=== PATIENT | male | born 1950 | race Hispanic/Latino ===

== ENCOUNTER 2022-04-05 17:27 | Emergency (ER) | payer MEDICARE ==
[2022-04-05] MEDS ORDERED: IBUPROFEN 600 MG TAB PO ONE (18:12)
[2022-04-05] MEDS ORDERED: ACETAMINOPHEN 500 MG TAB PO ONE (18:12)
--- NOTE | 2022-04-05 19:57 | Vascular Lab Report ---
DUPLEX DOPPLER LOWER EXTREMITY VEINS, LEFT INDICATION / CLINICAL INFORMATION: Leg pain. TECHNIQUE: Duplex doppler imaging was performed through the veins of the left lower extremity using v enous compression and other maneuvers. COMPARISON: None available. FINDINGS: LEFT COMMON FEMORAL VEIN: Negative. LEFT FEMORAL VEIN: Negative. LEFT POPLITEAL VEIN: Negative. LEFT CALF VEINS: Negative. ADDITIONAL FINDINGS: None. IMPRESSION: 1. No sonographic evidence for DVT in the left lower extremity. Signer Name: Lei Souza MD Signed: 04/05/2022 7:53 PM Workstation Name: [id number]
--- NOTE | 2022-04-05 20:14 | Emergency Department Report ---
ED Extremity Problem HPI - General Chief complaint: Extremity Injury, Lower Stated complaint: LEFT PAIN/MEDICAL CLEARENCE Source: EMS Mode of arrival: Stretcher Limitations: Physical Limitation - History of Present Illness Initial comments: Patient is a 71-year-old white male with a history of anxiety, depression, bipolar disorder, and paranoid schizophrenia who presents to the ED with complaint of acute onset left calf pain for the last 5 days, worse in the last 12 hours. Patient states that the pain has been constant and persistent especially with ambulation. Patient denies fall, traumatic injury, dizziness, syncope, chest pain or shortness of breath, fever, chills, heavy lifting or lower back pain, fever and chills, numbness and tingling or weakness of lower extremities bilaterally. MD Complaint: extremity pain (Left calf pain) -: Sudden, days(s) (5) Location: left, lower extremity History of Same: No -: Yes arthralgia (Left lower leg pain), No fever, No associated dyspnea, No associated chest pain Radiation: distal Severity scale (0 -10): 8 Quality: aching, sharp Consistency: constant Improves with: nothing Worsens with: weight bearing, walking, exertion, palpation Associated Symptoms: denies other symptoms, arthralgias (Left lower leg pain). denies: chest pain, shortness of breath, fever, myalgias, rash - Related Data Previous Rx's Medication Instructions Recorded Last Taken Type Cyclobenzaprine [Flexeril] 10 mg PO TID PRN #15 tab 04/05/22 Unknown Rx Naproxen 500 mg PO Q12H PRN #20 tab 04/05/22 Unknown Rx Allergies Allergy/AdvReac Type Severity Reaction Status Date / Time No Known Allergies Allergy Verified 04/05/22 17:42 ED Review of Systems ROS: Stated complaint: LEFT PAIN/MEDICAL CLEARENCE Other details as noted in HPI Constitutional: denies: chills, fever Eyes: denies: eye pain, eye discharge, vision change ENT: denies: ear pain, throat pain Respiratory: denies: cough, shortness of breath, wheezing Cardiovascular: denies: chest pain, palpitations Endocrine: no symptoms reported Gastrointestinal: denies: abdominal pain, nausea, diarrhea Genitourinary: denies: urgency, dysuria Musculoskeletal: arthralgia (Left lower leg pain). denies: back pain, joint swelling Skin: denies: rash, lesions Neurological: denies: headache, weakness, paresthesias Psychiatric: denies: anxiety, depression Hematological/Lymphatic: denies: easy bleeding, easy bruising ED Past Medical Hx - Past Medical History Hx Hypertension: Yes Hx Psychiatric Treatment: Yes (schizo) - Medications Home Medications: Home Medications Medication Instructions Recorded Confirmed Last Taken Type Cyclobenzaprine [Flexeril] 10 mg PO TID PRN #15 tab 04/05/22 Unknown Rx Naproxen 500 mg PO Q12H PRN #20 tab 04/05/22 Unknown Rx ED Physical Exam - General Limitations: Physical Limitation General appearance: alert, in no apparent distress - Head Head exam: Present: atraumatic, normocephalic, normal inspection - Eye Eye exam: Present: normal appearance, PERRL, EOMI Pupils: Present: normal accommodation - ENT ENT exam: Present: normal exam, normal orophraynx, mucous membranes moist, TM's normal bilaterally, normal external ear exam - Neck Neck exam: Present: normal inspection, full ROM. Absent: tenderness - Respiratory Respiratory exam: Present: normal lung sounds bilaterally. Absent: respiratory distress, wheezes, rales, rhonchi, chest wall tenderness, accessory muscle use, decreased breath sounds, prolonged expiratory - Cardiovascular Cardiovascular Exam: Present: regular rate, normal rhythm, normal heart sounds. Absent: systolic murmur, diastolic murmur, rubs, gallop - GI/Abdominal GI/Abdominal exam: Present: soft, normal bowel sounds. Absent: tenderness, gu arding, rebound, hyperactive bowel sounds, hypoactive bowel sounds, organomegaly, mass, bruit - Extremities Exam Extremities exam: Present: normal inspection, full ROM, tenderness (Palpable left calf tenderness), normal capillary refill, calf tenderness (Palpable left calf tenderness). Absent: pedal edema, joint swelling - Back Exam Back exam: Present: normal inspection, full ROM. Absent: tenderness, CVA tenderness (R), CVA tenderness (L), muscle spasm, paraspinal tenderness - Neurological Exam Neurological exam: Present: alert, oriented X3, CN II-XII intact, normal gait, reflexes normal - Psychiatric Psychiatric exam: Present: normal affect, normal mood, anxious - Skin Skin exam: Present: warm, dry, intact, normal color. Absent: rash ED Course Vital Signs 04/05/22 17:33 Temperature 98.3 F Pulse Rate 74 Respiratory 16 Rate Blood Pressure 147/91 [Left] O2 Sat by Pulse 96 Oximetry ED Medical Decision Making - Radiology Data Radiology results: report reviewed, image reviewed [facility] [address] [place] [address] Vascular Lab Report Signed Patient: MATT BARTHOLOMEW MR#: [id number] : 1950 Acct:[id number] Age/Sex: 71 / M ADM Date: 04/05/22 Loc: ED Attending Dr: Ordering Physician: HIGINIO GAINES Date of Service: 04/05/22 Procedure(s): VL venous duplex LE LT Accession Number(s): [id number] cc: HIGINIO GAINES DUPLEX DOPPLER LOWER EXTREMITY VEINS, LEFT INDICATION / CLINICAL INFORMATION: Leg pain. TECHNIQUE: Duplex doppler imaging was performed through the veins of the left lower extremity using venous compression and other maneuvers. COMPARISON: None available. FINDINGS: LEFT COMMON FEMORAL VEIN: Negative. LEFT FEMORAL VEIN: Negative. LEFT POPLITEAL VEIN: Negative. LEFT CALF VEINS: Negative. ADDITIONAL FINDINGS: None. IMPRESSION: 1. No sonographic evidence for DVT in the left lower extremity. Signer Name: Lei Souza MD Signed: 04/05/2022 7:53 PM Workstation Name: [id number] Transcribed By: SB Dictated By: LEI SOUZA MD Electronically Authenticated By: LEI SOUZA MD Signed Date/Time: 04/05/221952 DD/ 52 TD/TT: - Medical Decision Making This is a 71-year-old white male with a history of anxiety, depression, bipolar disorder, and paranoid schizophrenia who presents to the ED with complaint of acute onset left calf pain for the last 5 days, worse in the last 12 hours. Patient states that the pain has been constant and persistent especially with ambulation. In the ED, patient is alert and oriented x3 and is not in any distress. Patient was treated for pain in the ED. Doppler left lower extremity ultrasound showed no sonographic evidence of DVT. Patient symptoms are likely musculoskeletal. Patient was therefore discharged home on medications and advised to follow-up with his primary care physician in 7 to 10 days for reevaluation or return to the ED immediately if symptoms get worse. - Differential Diagnosis Muscle strain; DVT; muscle spasm; tendinitis; Critical care attestation.: If time is entered above; I have spent that time in minutes in the direct care of this critically ill patient, excluding procedure time. ED Disposition Clinical Impression: Pain of left calf Muscle strain of left lower extremity Qualifiers: Encounter type: initial encounter Qualified Code(s): S86.912A - Strain of unspecified muscle(s) and tendon(s) at lower leg level, left leg, initial encounter Disposition: HOME / SELF CARE / HOMELESS Is pt being admited?: No Does the pt Need Aspirin: No Condition: Stable Instructions: Muscle Strain, [id number] Additional Instructions: The Doppler left lower extremity ultrasound showed no sonographic evidence of DVT. Your symptoms are likely musculoskeletal and therefore take medications with food, drink plenty of fluids and follow-up with your primary care physician in 7 to 10 days for reevaluation. Return to the ED immediately if symptoms get worse. Prescriptions: Cyclobenzaprine [Flexeril] 10 mg PO TID PRN #15 tab PRN Reason: Muscle Spasm Naproxen 500 mg PO Q12H PRN #20 tab PRN Reason: Pain , Severe (7-10) Referrals: KYLE CARRANZA [Other] - 3-5 Days Time of Disposition: 20:14 Print Language: VIETNAMESE
[2022-04-06 02:45] VITALS: BP 128/71
== END 2022-04-06 02:40 | disposition home or self-care (01) ==
LOC: ED 17:27
DX: M79.662 Pain in left lower leg (principal); S86.912A Strain of unspecified muscle(s) and tendon(s) at lower leg level, left leg, initial encounter; X58.XXXA Exposure to other specified factors, initial encounter; Y93.89 Activity, other specified; Y92.89 Other specified places as the place of occurrence of the external cause; Y99.8 Other external cause status; I10 Essential (primary) hypertension
CPT/HCPCS: 99284